=== PATIENT | female | born 1980 | race Caucasian/White ===

== ENCOUNTER 2019-06-11 17:30 | Emergency (ER) | payer BC, OTHER ==
[2019-06-11 17:51] VITALS: BP 113/80; PULSE 86
[2019-06-11] MEDS ORDERED: Ondansetron 4 MG/2 ML SDV IVPUSH ONE (18:16)
[2019-06-11] MEDS ORDERED: HYDROmorphone 1 MG/ML Syringe IVPUSH STA (18:16)
[2019-06-11] MEDS ORDERED: Diatrizoate Meglumine/Diatrizoate Sodium 37% 120 ML Bottle PO ONE (18:22)
[2019-06-11] MEDS ORDERED: Iopamidol 612 MG/ML 100 ML Bottle IVPUSH ONE (18:22)
--- NOTE | 2019-06-11 18:23 | EDM.PDOC ---
ED HPI GENERAL MEDICAL PROBLEM - General Chief Complaint: Abdominal Pain Stated Complaint: ABDOMINAL PAIN Time Seen by Provider: 06/11/19 18:04 Source of Information: Reports: Patient, RN Notes Reviewed History Limitations: Reports: No Limitations - History of Present Illness INITIAL COMMENTS - FREE TEXT/NARRATIVE: Patient is a 39-year-old female who presents to the ED for evaluation of some generalized abdominal pain. Patient notes the pain has been present since Saturday. She notes that she had a hard bowel movement in the morning, and then had 3 episodes of diarrhea, and then her stools returned to normal. Patient states however she is having bad abdominal cramping that moves all over her belly at times. She states that her abdomen does hurt to the touch. She is not known to have any prior abdomen issues. Patient notes that the pain does come and go, laying on her side, or any movement seems to worsen the pain. She states that she shoveled a little bit of snow today, and this made it worse. Patient retains her appendix and gallbladder at this time, but has had 1 ovary removed. She is taken Tylenol, Tums, and Xanax for the pain last 4 PM, with little to no relief. She further denies any sore urination, is felt hot and cold at home, but has not taken her temperature, not having any nausea or vomiting. Patient further denies any sort of blood in the stools. Patient states that she last had some oatmeal yesterday at around 7 PM. She has not not eaten much today at all. - Related Data Allergies Allergy/AdvReac Type Severity Reaction Status Date / Time No Known Allergies Allergy Verified 06/11/19 17:51 Home Meds: Home Meds Ascorbic Acid [Vitamin C] 0 mg PO DAILY 06/11/19 [History] Buprenorphine HCl/Naloxone HCl [Suboxone 4 mg-1 mg Sl Film] 8 mg SL ASDIRECTED 06/11/19 [History] Multivitamin [Multi-Day Vitamins] 1 each PO DAILY 06/11/19 [History] Vitamin B Complex 1 each PO DAILY 06/11/19 [History] Past Medical History Musculoskeletal History: Reports: Back Pain, Chronic Psychiatric History: Reports: Addiction - Past Surgical History Female Surgical History: Reports: Other (See Below) Other Female Surgeries/Procedures: 1 Ovary Removed Social & Family History - Tobacco Use Smoking Status *Q: Current Every Day Smoker Years of Tobacco use: 23 Packs/Tins Daily: 1 - Caffeine Use Caffeine Use: Reports: Coffee - Recreational Drug Use Recreational Drug Use: No ED ROS GENERAL - Review of Systems Review Of Systems: See Below Constitutional: Reports: Fever, Chills, Decreased Appetite. Denies: Fatigue Respiratory: Denies: Shortness of Breath, Cough Cardiovascular: Denies: Chest Pain GI/Abdominal: Reports: Abdominal Pain (generalized/lower abdomen is worse), Diarrhea, Decreased Appetite. Denies: Bloody Stool, Nausea, Vomiting : Denies: Dysuria, Frequency, Urgency Musculoskeletal: Denies: Back Pain ED EXAM, GI/ABD - Physical Exam Exam: See Below Exam Limited By: No Limitations General Appearance: Alert, WD/WN, No Apparent Distress Eyes: Bilateral: Normal Appearance Throat/Mouth: Normal Inspection, Normal Lips, Normal Teeth, Normal Gums, Normal Oropharynx, Normal Voice, No Airway Compromise Head: Atraumatic, Normocephalic Neck: Normal Inspection Respiratory/Chest: No Respiratory Distress, Lungs Clear, Normal Breath Sounds, No Accessory Muscle Use, Chest Non-Tender Cardiovascular: Normal Peripheral Pulses, Regular Rate, Rhythm, No Murmur GI/Abdominal Exam: Normal Bowel Sounds, Soft, No Distention, No Mass, Tender ( lower abdomen mainly, but generalized tenderness all over) Extremities: Normal Inspection, Normal Capillary Refill Neurological: Alert, Oriented, Normal Cognition, No Motor/Sensory Deficits Psychiatric: Normal Affect, Normal Mood Skin Exam: Warm, Dry, Intact, Normal Color, No Rash Course - Vital Signs Last Recorded V/S: Last Vital Signs Temp 99.3 F 06/11/19 17:47 Pulse 86 06/11/19 17:47 Resp 16 06/11/19 17:47 BP 113/80 06/11/19 17:47 Pulse Ox 96 06/11/19 17:47 Orthostatic Blood Pressure [ 93/75 Standing] Orthostatic Blood Pressure [ 96/66 Sitting] Orthostatic Blood Pressure [ 93/60 Supine] - Orders/Labs/Meds Orders: Active Orders 24 hr Category Date Time Status Orthostatic Vital Signs [RC] ASDIRECTED Care 06/11/19 22:43 Active Transvaginal Non OB [US] Stat Exams 06/11/19 20:29 Taken Sodium Chloride 0.9% [Normal Saline] 1,000 ml Med 06/11/19 18:30 Active IV ASDIRECTED Sodium Chloride 0.9% [Saline Flush] Med 06/11/19 18:22 Active 10 ml FLUSH ONETIME PRN Medication Orders Sodium Chloride (Normal Saline) 1,000 mls @ 999 mls/hr IV ASDIRECTED MONIQUE Last Admin: 06/11/19 19:03 Dose: 999 mls/hr Sodium Chloride (Saline Flush) 10 ml FLUSH ONETIME PRN PRN Reason: Keep Vein Open Last Admin: 06/11/19 19:47 Dose: 10 ml Admin: 06/11/19 19:03 Dose: 10 ml Labs: Laboratory Tests 06/11/19 06/11/19 06/11/19 Range/Units 18:16 19:00 19:00 WBC 9.90 (3.98-10.04) K/mm3 RBC 3.93 L (3.98-5.22) M/mm3 Hgb 11.8 (11.2-15.7) gm/dl Hct 35.8 (34.1-44.9) % MCV 91.1 (79.4-94.8) fl MCH 30.0 (25.6-32.2) pg MCHC 33.0 (32.2-35.5) g/dl RDW Std Deviation 40.5 (36.4-46.3) fL Plt Count 255 (182-369) K/mm3 MPV 10.4 (9.4-12.3) fl Neutrophils % (Manual) 38 L (40-60) % Band Neutrophils % 0 (0-10) % Lymphocytes % (Manual) 48 H (20-40) % Atypical Lymphs % 6 % Monocytes % (Manual) 6 (2-10) % Eosinophils % (Manual) 2 (0.7-5.8) % Basophils % (Manual) 0 L (0.1-1.2) Platelet Estimate Adequate RBC Morph Comment Normal Sodium 141 (136-145) mEq/L Potassium 3.6 (3.5-5.1) mEq/L Chloride 104 (98-107) mEq/L Carbon Dioxide 28 (21-32) mEq/L Anion Gap 12.6 (5-15) BUN 9 (7-18) mg/dL Creatinine 0.7 (0.55-1.02) mg/dL Est Cr Clr Drug Dosing 109.92 mL/min Estimated GFR (MDRD) > 60 (>60) mL/min BUN/Creatinine Ratio 12.9 L (14-18) Glucose 86 (74-106) mg/dL Calcium 9.2 (8.5-10.1) mg/dL Total Bilirubin 1.1 H (0.2-1.0) mg/dL AST 16 (15-37) U/L ALT 24 (14-59) U/L Alkaline Phosphatase 43 L (46-116) U/L Total Protein 7.7 (6.4-8.2) g/dl Albumin 4.4 (3.4-5.0) g/dl Globulin 3.3 gm/dL Albumin/Globulin Ratio 1.3 (1-2) Urine Color Yellow (Yellow) Urine Appearance Clear (Clear) Urine pH 7.0 (5.0-8.0) Ur Specific [place] 1.025 (1.005-1.030) Urine Protein Negative (Negative) Urine Glucose (UA) Negative (Negative) Urine Ketones Negative (Negative) Urine Occult Blood Negative (Negative) Urine Nitrite Negative (Negative) Urine Bilirubin Negative (Negative) Urine Urobilinogen 0.2 (0.2-1.0) Ur Leukocyte Esterase Negative (Negative) Urine RBC 0-5 (0-5) /hpf Urine WBC 0-5 (0-5) /hpf Ur Squamous Epith Cells 0-5 (0-5) /hpf Urine Bacteria Few (FEW) /hpf Urine Mucus Few (FEW) /hpf Urine HCG, Qual (NEGATIVE) 06/11/19 Range/Units 20:28 WBC (3.98-10.04) K/mm3 RBC (3.98-5.22) M/mm3 Hgb (11.2-15.7) gm/dl Hct (34.1-44.9) % MCV (79.4-94.8) fl MCH (25.6-32.2) pg MCHC (32.2-35.5) g/dl RDW Std Deviation (36.4-46.3) fL Plt Count (182-369) K/mm3 MPV (9.4-12.3) fl Neutrophils % (Manual) (40-60) % Band Neutrophils % (0-10) % Lymphocytes % (Manual) (20-40) % Atypical Lymphs % % Monocytes % (Manual) (2-10) % Eosinophils % (Manual) (0.7-5.8) % Basophils % (Manual) (0.1-1.2) Platelet Estimate RBC Morph Comment Sodium (136-145) mEq/L Potassium (3.5-5.1) mEq/L Chloride (98-107) mEq/L Carbon Dioxide (21-32) mEq/L Anion Gap (5-15) BUN (7-18) mg/dL Creatinine (0.55-1.02) mg/dL Est Cr Clr Drug Dosing mL/min Estimated GFR (MDRD) (>60) mL/min BUN/Creatinine Ratio (14-18) Glucose (74-106) mg/dL Calcium (8.5-10.1) mg/dL Total Bilirubin (0.2-1.0) mg/dL AST (15-37) U/L ALT (14-59) U/L Alkaline Phosphatase (46-116) U/L Total Protein (6.4-8.2) g/dl Albumin (3.4-5.0) g/dl Globulin gm/dL Albumin/Globulin Ratio (1-2) Urine Color (Yellow) Urine Appearance (Clear) Urine pH (5.0-8.0) Ur Specific [place] (1.005-1.030) Urine Protein (Negative) Urine Glucose (UA) (Negative) Urine Ketones (Negative) Urine Occult Blood (Negative) Urine Nitrite (Negative) Urine Bilirubin (Negative) Urine Urobilinogen (0.2-1.0) Ur Leukocyte Esterase (Negative) Urine RBC (0-5) /hpf Urine WBC (0-5) /hpf Ur Squamous Epith Cells (0-5) /hpf Urine Bacteria (FEW) /hpf Urine Mucus (FEW) /hpf Urine HCG, Qual Negative (NEGATIVE) Meds: Medications Generic Name Dose Route Start Last Admin Trade Name Freq PRN Reason Stop Dose Admin Sodium Chloride 1,000 mls @ 999 mls/hr 06/11/19 18:30 06/11/19 19:03 Normal Saline IV 999 mls/hr ASDIRECTED MONIQUE Administration Sodium Chloride 10 ml 06/11/19 18:22 06/11/19 19:47 Saline Flush FLUSH 10 ml ONETIME PRN Administration Keep Vein Open Discontinued Medications Generic Name Dose Route Start Last Admin Trade Name Freq PRN Reason Stop Dose Admin Diatrizoate Meglum/Diatrizoate Sod 90 ml 06/11/19 18:22 06/11/19 19:47 Gastrografin 37% PO 06/11/19 18:23 90 ml ONETIME ONE Administration Hydromorphone HCl 0.5 mg 06/11/19 18:16 06/11/19 19:04 Dilaudid IVPUSH 06/11/19 18:17 0.5 mg ONETIME STA Administration Iopamidol 100 ml 06/11/19 18:22 06/11/19 19:47 Isovue-300 (61%) IVPUSH 06/11/19 18:23 100 ml ONETIME ONE Administration Ondansetron HCl 4 mg 06/11/19 18:16 06/11/19 19:03 Zofran IVPUSH 06/11/19 18:17 4 mg ONETIME ONE Administration - Re-Assessments/Exams Free Text/Narrative Re-Assessment/Exam: 06/11/19 18:23 Patient presents to the ED for evaluation of her lower abdominal pain. Have ordered abdominal CT, some labs, IV fluids, 0.5 mg of Dilaudid and 4 mg Zofran for initial management. 06/11/19 20:[address] is back and does demonstrate a soft tissue density within the pelvis that appears to be blood, May represent leaking hemorrhagic cyst or nonvisualized ectopic . Pelvic ultrasound suggested to further evaluate. Please correlate patient is not . The patient states that she got her period last month and is due to get her next period in 4-5 days, and that her has had a vasectomy. I have ordered the ultrasound for further evaluation. Other labs appear to be within normal limits. I have also ordered a urine HCG to r/o . 06/11/19 22:49 hCG was negative. Ultrasound demonstrates findings compatible with ruptured right adnexal hemorrhagic cyst. I did discuss the findings with Dr. aTte, and he states this is essentially a internal bleed of sorts, and suggested orthostatic vital signs, and referral to OB for observation versus laparoscopy. 06/11/19 23:[address] Marks, [facility], she states since the patient lives in [place], and the patient's been fairly stable for 5 hours while being in the ER, that she can likely be discharged home with little to no problems that should be expected. She will require follow-up early next week. Patient is okay with this plan and agrees to return to the ER if things seem to change or worsen. Departure - Departure Time of Disposition: 23:16 Disposition: Home, Self-Care 01 Condition: Fair Clinical Impression: Ruptured ovarian cyst - Discharge Information *PRESCRIPTION DRUG MONITORING PROGRAM REVIEWED*: No *COPY OF PRESCRIPTION DRUG MONITORING REPORT IN PATIENT HALIE: No Instructions: Ovarian Cyst, [id number] Referrals: Bebe Uribe PA-C [Primary Care Provider] - Forms: ED Department Discharge Additional Instructions: You were evaluated in the ER today regarding your lower abdominal pain. A work-up was done at today's visit, you were given some IV fluids and some pain medications. Your laboratory evaluation was essentially within normal limits. Your CT demonstrated some free fluid in your pelvis, and the ultrasound demonstrated that this was a ruptured ovarian cyst in nature. You will need to keep an eye on your blood pressures, to make sure they do not fall below 90 systolically, which is the top number of the blood pressure. Or if you should have any increased dizziness with standing, or feeling faint with position changes. You will need to follow-up with [facility], we consulted Dr. Marks our [facility] on- call tonight, please call her office [phone], tomorrow to set up an appointment for early next week. Please return to the ER at any time if symptoms should change or worsen. Sepsis Event Note - Evaluation Sepsis Screening Result: No Definite Risk - Focused Exam Vital Signs: Vital Signs Temp Pulse Resp BP Pulse Ox 06/11/19 17:47 99.3 F 86 16 113/80 96 Date Exam was Performed: 06/11/19 Time Exam was Performed: 23:15 - My Orders Last 24 Hours: My Active Orders 06/11/19 18:22 Sodium Chloride 0.9% [Saline Flush] 10 ml FLUSH ONETIME PRN 06/11/19 18:30 Sodium Chloride 0.9% [Normal Saline] 1,000 ml IV ASDIRECTED 06/11/19 20:29 Transvaginal Non OB [US] Stat 06/11/19 22:43 Orthostatic Vital Signs [RC] ASDIRECTED - Assessment/Plan Last 24 Hours: My Active Orders 06/11/19 18:22 Sodium Chloride 0.9% [Saline Flush] 10 ml FLUSH ONETIME PRN 06/11/19 18:30 Sodium Chloride 0.9% [Normal Saline] 1,000 ml IV ASDIRECTED 06/11/19 20:29 Transvaginal Non OB [US] Stat 06/11/19 22:43 Orthostatic Vital Signs [RC] ASDIRECTED
[2019-06-11] MEDS ORDERED: Sodium Chloride 0.9% 1,000 ML IV SCH (18:30)
[2019-06-11] MEDS: Sodium Chloride 0.9% 10 ML Syringe FLUSH PRN ×2 (19:03→19:47)
--- NOTE | 2019-06-11 20:16 | CT ---
CT abdomen and pelvis Technique: Multiple axial sections were obtained from above the dome of the diaphragm inferiorly through the pubic symphysis. Intravenous and oral contrast has been given. Comparison: No prior CT abdomen or pelvis study is available. Findings: Visualized lung bases show nothing acute. Liver contains no focal abnormality. Gallbladder contains no calcified gallstones. Spleen appears within normal limits. Adrenal glands not optimally seen but shows no discrete nodule. Kidneys show symmetric contrast enhancement with no hydronephrosis or mass. Pancreas shows no discrete abnormality. Aorta shows no aneurysm. No retroperitoneal adenopathy is seen. No mesenteric abnormalities are appreciated. Soft tissue density is noted within the pelvis having Hounsfield unit measurements of blood. Small cyst is noted within the right ovary which appears to be collapsing. Appendix is seen which is normal in size. Bone window settings were reviewed which appear within normal limits for the patient's age. Impression: 1. Soft tissue density within the pelvis having the Hounsfield unit measurements of blood. Findings may represent leaking hemorrhagic adnexal cyst or a nonvisualized ruptured ectopic . Pelvic ultrasound is suggested to further evaluate. Please correlate that patient has no positive test. 2. No additional abnormality is seen on CT study of the abdomen and pelvis. Diagnostic code #5 Study was dictated in MDT
--- NOTE | 2019-06-12 06:34 | US ---
Pelvic ultrasound: Multiple real-time images were obtained transvaginally. Comparison: Prior CT abdomen and pelvis exam of 06/11/19, 7:51 PM. Findings: Small subserosal fibroid is noted within an anteverted uterus within the uterine fundus. This submucosal fibroid measures approximately 1.7 cm in size. No additional myometrial abnormality is seen. Endometrial thickness is 9.3 mm. Nabothian cyst is noted within the cervix. Left ovary not visualized with patient giving a history of prior left oophorectomy. Right ovary is seen and shows follicles. There is a hyperechoic area next to the right ovary measuring 2.0 cm. This may represent hemorrhagic cyst or adjacent blood clot. There is a mild amount of complicated fluid within the cul-de-sac. Measurements: Uterus: Length 8.0 cm, AP height 4.4 cm, transverse width 6.5 cm Right ovary: 4.6 x 2.0 x 3.2 cm Impression: 1. Hemorrhagic cyst versus small adjacent hematoma within the right ovary. Mild amount of complicated fluid within the pelvis most likely due to blood. Findings correlate with CT exam. This hemorrhagic area measures approximately 2.0 cm. 2. Small submucosal fibroid within the uterine fundus. 3. Nabothian cyst. Note: Please correlate that patient's test is negative to make sure findings do not represent ruptured ectopic . Recommend follow-up pelvic ultrasound study in 3-4 weeks to make sure findings resolve and the hemorrhagic cyst does not increase in size. Diagnostic code #3 This report was dictated in MDT I agree with preliminary report from [facility], finalized on 06/11/19, 11:30 PM Central Daylight Time
== END 2019-06-11 23:28 | disposition home or self-care (01) ==
LOC: JD.ED 17:30
DX: N83.209 Unspecified ovarian cyst, unspecified side (principal); F17.210 Nicotine dependence, cigarettes, uncomplicated
CPT/HCPCS: 36415; 74177; 76830; 80053; 81001; 81025; 85007; 85027; 96361; 96374; 96375; 99284; J1170; J2405; J7030; Q9963; Q9967

== ENCOUNTER 2024-04-05 17:57 | Emergency (ER) | payer MEDICAID ==
[2024-04-05] MEDS: Aspirin 81 MG Tab.Chew PO ONE (18:26)
[2024-04-05 18:34] LABS: BASOPHILS PERCENT AUTO 0.3 % (0.0-1.0); EOSINOPHILS ABSOLUTE AUTO 0.1 K/mm3 (0.0-0.4); EOSINOPHILS PERCENT AUTO 0.7 % (0.0-6.0); HEMATOCRIT 42.9 % (37.0-47.0); HEMOGLOBIN 14.3 gm/dl (12.0-16.0); IMMATURE GRAN ABSOLUTE AUTO 0.02 K/mm3 (0.00-0.05); IMMATURE GRAN PERCENT AUTO 0.2 % (0.0-0.4); LYMPHOCYTES ABSOLUTE AUTO 3.4 K/mm3 (1.0-4.8); LYMPHOCYTES PERCENT AUTO 31.9 % (24.0-44.0); MEAN CORPUSCULAR HEMOGLOBIN 30.6 pg (28.0-32.0); MEAN CORPUSCULAR HGB CONC 33.3 g/dl (32.0-36.0); MEAN CORPUSCULAR VOLUME 91.7 fl (83.0-99.0); MEAN PLATELET VOLUME 10.5 fl (9.4-12.3); MONOCYTES ABSOLUTE AUTO 0.7 K/mm3 (0.0-0.8); MONOCYTES PERCENT AUTO 6.5 % (0.0-8.0); NEUTROPHILS ABSOLUTE AUTO 6.5 K/mm3 (1.8-7.7); NEUTROPHILS PERCENT AUTO 60.4 % (41.0-71.0); PLATELET COUNT,PLT 293 K/mm3 (150-400); RED BLOOD CELL COUNT 4.68 M/mm3 (4.10-5.30); WHITE BLOOD CELL COUNT,WBC 10.66 K/mm3 (3.9-11.3)
[2024-04-05 18:59] LABS: ALANINE AMINOTRANSFERASE,ALT 24 U/L (14-59); ALBUMIN 3.8 g/dl (3.4-5.0); ALKALINE PHOSPHATASE 57 U/L (46-116); ASPARTATE AMNIOTRANSFERASE,AST 10 U/L (15-37); BILIRUBIN TOTAL 0.6 mg/dL (0.2-1.0); BLOOD UREA NITROGEN,BUN 14 mg/dL (7-18); BUN/CREATININE RATIO 12.7 (14-18); CARBON DIOXIDE,CO2 31 mEq/L (21-32); CHLORIDE,CL 104 mEq/L (98-107); CREATININE 1.1 mg/dL (0.55-1.02); ESTIMATED GFR 64 mL/min (>60); GLUCOSE RANDOM 73 mg/dL (70-99); PROTEIN TOTAL,TP 7.5 g/dl (6.4-8.2); SODIUM,NA 142 mEq/L (136-145)
[2024-04-05 19:05] LABS: TROPONIN I HIGH SENSITIVITY < 4 pg/mL (<=51)
[2024-04-05] MEDS: Sodium Chloride 0.9% 1,000 ML IV ONE (19:24)
[2024-04-05] MEDS: Cyclobenzaprine 10 MG Tab PO ONE (20:04)
== END 2024-04-05 20:52 | disposition home or self-care (01) ==
LOC: JD.ED 17:57
DX: R07.89 Other chest pain (principal); Z79.899 Other long term (current) drug therapy
CPT/HCPCS: 36415; 71045; 80053; 83880; 84484; 85025; 85379; 93005; 96360; 99285; A9270; J7030; 93010; 99284